=== PATIENT | male | born 1985 | race Caucasian/White ===

== ENCOUNTER 2016-08-05 11:48 | Emergency (ER) | payer SELFPAY ==
[2016-08-05 13:00] VITALS: BP 137/73
[2016-08-05] MEDS ORDERED: HYDROCODONE/ACETAMINOPHEN 5-325 MG 6 TAB/DSPK PO PRN ×2 (13:01→15:13)
--- NOTE | 2016-08-05 13:03 | ER Document Report ---
ED Medical Screen (RME) - General Chief Complaint: Shoulder Pain Stated Complaint: POSSIBLE LEFT SHOULDER INJURY Mode of Arrival: Ambulatory Information source: Patient Notes: Patient complains of left shoulder pain that worsened this morning around 0930 after he heard pop while hanging sheet rock. He states the pain is throbbing, constant and worse with movement. Denies numbness, tingling in fingers. He has not had any medication for this. He endorses chronic shoulder pain that is controlled with tylenol typically. TRAVEL OUTSIDE OF THE [place] IN LAST 30 DAYS: No - Related Data Allergies/Adverse Reactions: No Known Allergies Allergy (Verified 04/10/16 16:39) Past Medical History - Social History Frequency of alcohol use: Occasional Drug Abuse: None Musculoskeltal Medical History: Reports Hx Musculoskeletal Deformity, Reports Hx Musculoskeletal Trauma Traumatic Medical History: Reports: Hx Fractures - Left elbow and knee and right fingers Past Surgical History: Reports: Hx Orthopedic Surgery - Left elbow - Immunizations Immunizations up to date: Yes Hx Diphtheria, Pertussis, Tetanus Vaccination: Yes Review of Systems - Review of Systems Constitutional: See HPI Musculoskeletal: See HPI Physical Exam - Vital signs Vitals: Pulse Resp BP Pulse Ox 84 18 137/73 H 100 08/05/16 12:03 08/05/16 12:03 08/05/16 12:03 08/05/16 12:03 - Notes Notes: General: appears uncomfortable but no distress. Extremities: Left shoulder - tender to palpation along anterior joint with obvious deformity at AC joint. Passive ROM intact in abduction. At rest, shoulder held in adducted position with elbow flexed at 90 degrees. Course - Re-evaluation Re-evalutation: 08/05/16 13:02 Patient seen and examined. Ordered xray and PO medication. - Vital Signs Vital signs: Temp Pulse Resp BP Pulse Ox 84 18 137/73 H 100 08/05/16 12:03 08/05/16 12:03 08/05/16 12:03 08/05/16 12:03
[2016-08-05] MEDS ORDERED: HYDROCODONE/ACETAMINOPHEN 5-325 MG TABLET PO ONE (13:06)
--- NOTE | 2016-08-05 14:32 | ER Document Report ---
ED Extremity Problem, Upper - General Mode of Arrival: Ambulatory Information source: Patient TRAVEL OUTSIDE OF THE [place] IN LAST 30 DAYS: No - HPI Patient complains to provider of: Left, Shoulder Associated symptoms: Other - See above - General Chief Complaint: Shoulder Pain Stated Complaint: POSSIBLE LEFT SHOULDER INJURY Notes: Patient is a 31 year old male who presents to the emergency department complaining of left shoulder pain. Patient states that he was installing ceiling sheet rock when he heard a pop and had pain that has not subsided. Patient reports that he has chronic left shoulder pain from a few years ago and was seen at this facility on 04/22/16 for a similar flare up after falling off a ladder. Patient reports that he had an AC separation when he was younger of the left shoulder. Patient did have an MRI done after his 04/22 visit but has not been able to go to his doctor for a follow up due to monetary issues. (RAJIV CAMARENA) - Related Data Allergies/Adverse Reactions: No Known Allergies Allergy (Verified 04/10/16 16:39) Past Medical History - General Information source: Patient - Social History Smoking Status: Current Every Day Smoker Frequency of alcohol use: Occasional Drug Abuse: None Family History: Reviewed & Not Pertinent, Arthritis, Hyperlipidemia, Hypertension, Malignancy Patient has suicidal ideation: No Patient has homicidal ideation: No Musculoskeltal Medical History: Reports Hx Musculoskeletal Deformity, Reports Hx Musculoskeletal Trauma Traumatic Medical History: Reports: Hx Fractures - Left elbow and knee and right fingers Past Surgical History: Reports: Hx Orthopedic Surgery - Left elbow - Immunizations Immunizations up to date: Yes Hx Diphtheria, Pertussis, Tetanus Vaccination: Yes Review of Systems - Review of Systems Constitutional: No symptoms reported EENT: No symptoms reported Cardiovascular: No symptoms reported Respiratory: No symptoms reported Gastrointestinal: No symptoms reported Genitourinary: No symptoms reported Male Genitourinary: No symptoms reported Musculoskeletal: See HPI, Joint pain - Left shoulder Skin: No symptoms reported Hematologic/Lymphatic: No symptoms reported Neurological/Psychological: No symptoms reported -: Yes All other systems reviewed and negative Physical Exam - Vital signs Interpretation: Normal - General General appearance: Appears well, Alert - HEENT Head: Normocephalic, Atraumatic - Respiratory Respiratory status: No respiratory distress - Cardiovascular Rhythm: Regular Heart sounds: Normal auscultation Murmur: No - Extremities General lower extremity: Normal inspection Shoulder: Tender - left acromion end is tender to palpation - Neurological Neuro grossly intact: Yes Cognition: Normal Orientation: AAOx4 [place] Coma Scale Eye Opening: Spontaneous [place] Coma Scale Verbal: Oriented [place] Coma Scale Motor: Obeys Commands Rsa Coma Scale Total: 15 Speech: Normal - Psychological Associated symptoms: Normal affect, Normal mood - Skin Skin Temperature: Warm Skin Moisture: Dry Skin Color: Normal Discharge - Discharge Clinical Impression: Acromioclavicular (joint) (ligament) sprain Qualifiers: Encounter type: initial encounter Laterality: left Qualified Code(s): S43.52XA - Sprain of left acromioclavicular joint, initial encounter Condition: Stable Disposition: HOME, SELF-CARE Additional Instructions: AC Joint Sprain: The injury to your shoulder caused an acromioclavicular (AC) sprain. This involves the joint between the point of the shoulder-blade and the collarbone. This injury, while quite painful, will usually heal well without any permanent problems. The usual treatment is cold packs and a sling. (In rare cases, a shoulder separation may require surgery.) The shoulder will need to be rested until the pain and swelling decrease. With milder AC sprains, the shoulder can be used again within a few days, although motions such as throwing may be painful for months. The usual guideline is "if it hurts, don't do it." Your physician has assessed the severity of your shoulder separation. It is important that instructions be followed exactly concerning work, sports, and follow-up care. Your treatment plan may change based on the results of further check-ups. Your pain today seems to be coming from the acromioclavicular joint. You should use ice packs and wear your shoulder immobilizer today. Take 2 Aleve every 12 hours. Follow-up with a local orthopedic surgeon if not improving. Scribe Attestation: 08/05/16 15:14 I personally performed the services described in the documentation, reviewed and edited the documentation which was dictated to the scribe in my presence, and it accurately records my words and actions. (PIYUSH ACUNA) Scribe Documentation - Scribe Written by Zoran:: Zoran Timmons, 08/05/16, 14:47 acting as scribe for :: Eva
== END 2016-08-05 15:33 | disposition home or self-care (01) ==
LOC: ER 11:48
DX: S43.52XA Sprain of left acromioclavicular joint, initial encounter (principal); M25.512 Pain in left shoulder; F17.200 Nicotine dependence, unspecified, uncomplicated; X58.XXXA Exposure to other specified factors, initial encounter; Y93.H3 Activity, building and construction
CPT/HCPCS: 99283

== ENCOUNTER 2017-01-12 16:27 | Emergency (ER) | payer SELFPAY ==
[2017-01-12 16:38] VITALS: BP 134/82
--- NOTE | 2017-01-12 16:59 | ER Document Report ---
ED Respiratory Problem - General Chief Complaint: Chest Congestion Stated Complaint: COUGH/CHEST PAIN Time Seen by Provider: 01/12/17 16:48 Mode of Arrival: Ambulatory Information source: Patient Notes: 31-year-old male presents to ED for cough congestion pain with cough and over the last week. States is getting worse now. States she did not develop short of breath. States his kids came home with a viral illness and he cut it from them and then he has been working out in the rain ever since then was not taking care of himself. TRAVEL OUTSIDE OF THE [place] IN LAST 30 DAYS: No - HPI Patient complains to provider of: COPD, Short of breath Onset: Last week Duration: Worse/persistent Initiating Event: URI Quality of pain: Sharp Severity: Moderate Pain Level: 4 Context: Smoker Short of Breath: Mild Cough: Productive Sputum amount: Small Sputum color: Green Sputum consistency: Thick Associated symptoms: Cough, PND, Runny nose, Sinus pain/pressure, Short of breath. denies: Fever Similar symptoms previously: Yes Recently seen / treated by doctor: No - Related Data Allergies/Adverse Reactions: No Known Allergies Allergy (Verified 01/12/17 16:36) Past Medical History - General Information source: Patient - Social History Smoking Status: Current Every Day Smoker Cigarette use (# per day): Yes - Half a pack a day Smoking Education Provided: Yes - Less than 2 minutes Frequency of alcohol use: None Drug Abuse: None Occupation: Construction Lives with: Spouse/Significant other - Children Family History: Arthritis, DM, Hyperlipidemia, Hypertension, Malignancy. denies : CAD, COPD, CVA, Thyroid Disfunction Patient has suicidal ideation: No Patient has homicidal ideation: No - Past Medical History Cardiac Medical History: Reports: None Pulmonary Medical History: Reports: None EENT Medical History: Reports: None Neurological Medical History: Reports: None Endocrine Medical History: Reports: None Renal/ Medical History: Reports: None Malignancy Medical History: Reports None GI Medical History: Reports: None Musculoskeltal Medical History: Reports Hx Musculoskeletal Deformity, Reports Hx Musculoskeletal Trauma Skin Medical History: Reports None Psychiatric Medical History: Reports: None Traumatic Medical History: Reports: Hx Fractures - Left elbow and knee and right fingers Infectious Medical History: Reports: None Past Surgical History: Reports: Hx Orthopedic Surgery - Left elbow - Immunizations Immunizations up to date: Yes Hx Diphtheria, Pertussis, Tetanus Vaccination: Yes Review of Systems - Review of Systems Constitutional: Recent illness EENT: Nose congestion, Sinus discharge, Throat pain Cardiovascular: No symptoms reported Respiratory: Cough, Sputum Gastrointestinal: No symptoms reported Genitourinary: No symptoms reported Male Genitourinary: No symptoms reported Musculoskeletal: No symptoms reported Skin: No symptoms reported Hematologic/Lymphatic: No symptoms reported Neurological/Psychological: No symptoms reported Physical Exam - Vital signs Vitals: Temp Pulse Resp BP Pulse Ox 97.8 F 85 16 134/82 H 98 01/12/17 16:36 01/12/17 16:36 01/12/17 16:36 01/12/17 16:36 01/12/17 16:36 Interpretation: Normal - General General appearance: Appears well, Alert - HEENT Head: Normocephalic, Atraumatic Eyes: Normal Pupils: PERRL Ears: Normal External canal: Normal Tympanic membrane: Normal Sinus: Normal Nasal: Purulent discharge, Swelling Mouth/Lips: Normal Mucous membranes: Normal Pharynx: Post nasal drainage Neck: Normal - Respiratory Respiratory status: No respiratory distress Chest status: Tender, Pain with cough Breath sounds: Normal, Nonproductive cough. No: Productive cough, Rales, Rhonchi, Stridor, Wheezing Chest palpation: Normal - Cardiovascular Rhythm: Regular Heart sounds: Normal auscultation Murmur: No - Abdominal Inspection: Normal Distension: No distension Bowel sounds: Normal Tenderness: Nontender Organomegaly: No organomegaly - Back Back: Normal, Nontender - Extremities General upper extremity: Normal inspection, Nontender, Normal color, Normal ROM , Normal temperature General lower extremity: Normal inspection, Nontender, Normal color, Normal ROM , Normal temperature, Normal weight bearing. No: Sharyn's sign - Neurological Neuro grossly intact: Yes Cognition: Normal Orientation: AAOx4 [place] Coma Scale Eye Opening: Spontaneous [place] Coma Scale Verbal: Oriented [place] Coma Scale Motor: Obeys Commands [place] Coma Scale Total: 15 Speech: Normal Motor strength normal: LUE, RUE, LLE, RLE Sensory: Normal - Psychological Associated symptoms: Normal affect, Normal mood - Skin Skin Temperature: Warm Skin Moisture: Dry Skin Color: Normal Course - Re-evaluation Re-evalutation: 01/12/17 18:05 Discussed x-ray with patient. Patient is having discomfort when he coughs and tenderness to the palpation to the chest. He states it feels like he is tight and is he feels short of breath. Patient was treated with steroids and albuterol inhaler and instructed to follow-up with the primary doctor. - Vital Signs Vital signs: Temp Pulse Resp BP Pulse Ox 97.8 F 85 16 134/82 H 98 01/12/17 16:36 01/12/17 16:36 01/12/17 16:36 01/12/17 16:36 01/12/17 16:36 - Diagnostic Test Radiology reviewed: Image reviewed, Reports reviewed Discharge - Discharge Clinical Impression: URI (upper respiratory infection) Qualifiers: URI type: unspecified URI Qualified Code(s): J06.9 - Acute upper respiratory infection, unspecified Disposition: HOME, SELF-CARE Instructions: Family Physicians / Practices Additional Instructions: UPPER RESPIRATORY ILLNESS: You have a viral infection of the respiratory passages -- a "cold." This common infection causes nasal congestion, drainage, and often sore throat and cough. It is highly contagious. The disease usually lasts about 10 to 14 days. There is no "cure" for the viral infection -- it must run its course. If there is a complication, such as bacterial infection in the nose, sinuses, middle ear, or bronchial tubes, antibiotics may be required. The antibiotics won't affect the virus. Drink plenty of fluids. A humidifier may help. An expectorant medication or decongestant may make you more comfortable. Use acetaminophen or ibuprofen for fever or aches. See the doctor if fever persists over two days, if there is any significant worsening of your symptoms, or if you simply fail to improve as expected. BRONCHOSPASM: You have tightness in the bronchial tubes, called bronchospasm. This often occurs with bronchial infections. Allergies, inhaled chemicals, and polluted or cold air can also provoke bronchospasm. It's more likely in patients with asthma in the family. Emergency treatment of bronchospasm may include adrenaline shots or bronchodilator aerosol. You may feel lightheaded and have a rapid pulse for an hour or two. Rest and get plenty of fluids. At home, we'll treat you with a bronchodilator inhaler. Antibiotics and corticosteroids may be required for some patients. Until you recover, avoid chemical fumes, dusts, pollens, and exercising in very cold or dry air. If you smoke, stop now!! If you develop a fever, increased wheezing, chest pain, or severe shortness of breath, you should contact the doctor immediately. DECONGESTANT MEDICATION: A decongestant medicine has been prescribed. Often this medicine is combined in the same tablet with an antihistamine or expectorant. This type of medicine is helpful in treating a bad cold or sinus condition, as well as in treatment of the nasal congestion of hay fever. It is not of much benefit for lung infections. Decongestant medicines are related to stimulants. They can cause an increase in blood pressure and heart rate. Persons with heart disease and high blood pressure should not take decongestants without discussing this with the physician. If you develop palpitations, chest pain, headache, or tremors, stop the medicine and consult your physician. COUGH-SUPPRESSANT & EXPECTORANT MEDICATION: You are to use a cough medication as needed for relief of symptoms. This medicine is a combination of an expectorant (to make the mucous thinner and more easily "coughed up") and a cough suppressant (to reduce the frequency of coughing). The cough-suppressant medicine is related to narcotics. You may experience mild nausea and sleepiness. Some patients who are very sensitive to narcotics may have stomach pain from this medicine. Taking the medicine with food reduces these side effects. Do not drive or work with machinery until you know how this medicine affects you. The expectorant should have no side effects. Iodine-containing expectorants (such as organidin) should not be taken by persons with active thyroid disease unless approved by your doctor. Call the doctor if you develop shortness of breath, hives, rash, itching, lightheadedness, or severe nausea and vomiting. INHALED BRONCHODILATORS: You have received a treatment of and/or prescription for an inhaled bronchodilator -- a medication which stimulates the airways in the lung to dilate. This improves the flow of air in asthma, bronchitis, and emphysema. These medicines have some similarity to adrenaline, and can cause similar side effects: shakiness, racing heart, and a sense of nervousness. These side effects decrease with time. Contact your doctor if these side effects are severe. Do not over-use the medicine. Too-frequent use of the inhaler may make it ineffective. Call your doctor if the inhaler is not controlling your symptoms at the prescribed doses. STEROID MEDICATION: You have been given an injection of or oral medicine of the cortisone/ steroid class. This medication is used to control inflammation or allergy. Doc t is usually only given for a short period of time, until the acute process subsides. There are usually no side effects from short-term use of cortisone-like medications. Some persons feel an increased sense of well-being and are not sleepy at bedtime. Long-term use of cortisone medications is best avoided, unless required for a severe condition. If your condition does not remit, or relapses after the course of corticosteroid medication, you should consult your physician. USE OF ACETAMINOPHEN (Tylenol): Acetaminophen may be taken for pain relief or fever control. It's much safer than aspirin, offering a wider range of "safe" dosages. It is safe during . Some brand names are Tylenol, Panadol, Datril, Anacin 3, Tempra, and Liquiprin. Acetaminophen can be repeated every four hours. The following are maximum recommended dosages: >89 pounds or adults 650 mg to 900 mg Acetaminophen can be repeated every four hours. Maximum dose not to exceed 4000 mg a day. SMOKING: If you smoke, you should stop smoking. The tar and chemicals in cigarette smoke are harmful. Smoking has been shown to cause: emphysema chronic bronchitis lung cancer mouth and throat cancer stomach and pancreas cancer premature aging defects In addition, smoking increases ear and lung infections in children of smokers. FOLLOW-UP CARE: If you have been referred to a physician for follow-up care, call the physician s office for an appointment as you were instructed or within the next two days. If you experience worsening or a significant change in your symptoms, notify the physician immediately or return to the Emergency Department at any time for re-evaluation. Prescriptions: Prednisone [Deltasone 10 mg Tablet] 10 mg PO ASDIR PRN #21 tablet PRN Reason: Forms: Elevated Blood Pressure, Smoking Cessation Education
--- NOTE | 2017-01-12 17:22 | RADIOLOGY REPORT (SQ) ---
EXAM DESCRIPTION: CHEST PA/LAT COMPLETED DATE/TIME: 01/12/2017 5:10 pm REASON FOR STUDY: cough congestion COMPARISON: 2012. TECHNIQUE: Frontal and lateral radiographic views of the chest acquired. NUMBER OF VIEWS: Two view. LIMITATIONS: None. FINDINGS: LUNGS AND PLEURA: No opacities, masses or pneumothorax. No pleural effusion. MEDIASTINUM AND HILAR STRUCTURES: No masses or contour abnormalities. HEART AND VASCULAR STRUCTURES: Heart normal size. No evidence for failure. BONES: No acute findings. HARDWARE: None in the chest. OTHER: No other significant finding. IMPRESSION: NO SIGNIFICANT RADIOGRAPHIC FINDING IN THE CHEST. TECHNICAL DOCUMENTATION: JOB ID: [id number] [employer]- All Rights Reserved
[2017-01-12] MEDS ORDERED: PREDNISONE 20 MG TABLET PO ONE (17:57)
[2017-01-13] MEDS ORDERED: ALBUTEROL SULFATE HFA (90 MCG/PUFF) 8 GM MDI (1 MDI/ER DISP) IH ONE (17:57)
== END 2017-01-12 18:14 | disposition home or self-care (01) ==
LOC: ER 16:27
DX: J06.9 Acute upper respiratory infection, unspecified (principal); R09.89 Other specified symptoms and signs involving the circulatory and respiratory systems; R05 Cough; R07.9 Chest pain, unspecified; F17.210 Nicotine dependence, cigarettes, uncomplicated
CPT/HCPCS: 99283; 71020; J7512

== ENCOUNTER 2018-02-07 15:49 | Emergency (ER) | payer SELFPAY ==
[2018-02-07 16:08] VITALS: BP 150/77
--- NOTE | 2018-02-07 16:09 | ER Document Report ---
HPI - HPI Patient complains to provider of: Lateral right knee pain Onset: Other - Pain Level: 3 Context: 33-year-old thought he had an insect bite on his lateral left knee on and is gotten a lot redder and more painful since. No fever or chills did itch it when he first got up. Associated Symptoms: None Exacerbated by: Movement Relieved by: Denies Similar symptoms previously: No Recently seen / treated by doctor: No - ROS ROS below otherwise negative: Yes Systems Reviewed and Negative: Yes All other systems reviewed and negative - REPRODUCTIVE Reproductive: DENIES: : Past Medical History - General Information source: Patient - Social History Smoking Status: Unknown if Ever Smoked Frequency of alcohol use: None Drug Abuse: None Lives with: Family Family History: Arthritis, DM, Hyperlipidemia, Hypertension, Malignancy Renal/ Medical History: Denies: Hx Peritoneal Dialysis Musculoskeltal Medical History: Reports Hx Musculoskeletal Deformity, Reports Hx Musculoskeletal Trauma Traumatic Medical History: Reports: Hx Fractures - Left elbow and knee and right fingers Past Surgical History: Reports: Hx Orthopedic Surgery - Left elbow - Immunizations Immunizations up to date: Yes Hx Diphtheria, Pertussis, Tetanus Vaccination: Yes Vertical Provider Document - CONSTITUTIONAL Agree With Documented VS: Yes Exam Limitations: No Limitations General Appearance: No Apparent Distress - INFECTION CONTROL TRAVEL OUTSIDE OF THE [place] IN LAST 30 DAYS: No - MUSCULOSKELETAL/EXTREMETIES Musculoskeletal/Extremeties: MAEW, FROM, Tender - Warm red local cellulitis to a crusted lesion lateral left knee, there is no palpable fluid collection that could be incised. - NEURO Level of Consciousness: Awake Motor/Sensory: No Motor Deficit, No Sensory Deficit Course - Re-evaluation Re-evalutation: 02/07/18 X-rays negative per radiologist - Vital Signs Vital signs: Temp Pulse Resp BP Pulse Ox 98.1 F 78 18 150/77 H 98 02/07/18 16:07 02/07/18 16:07 02/07/18 16:07 02/07/18 16:07 02/07/18 16:07 Discharge - Discharge Clinical Impression: Local cellulitis Insect bite Qualifiers: Encounter type: initial encounter Qualified Code(s): W57.XXXA - Bitten or stung by nonvenomous insect and other nonvenomous arthropods, initial encounter Condition: Good Disposition: HOME, SELF-CARE Instructions: Acetaminophen, Cephalexin ([facility]), Ibuprofen (General) ([facility]), Trimethoprim-Sulfa ([facility]), Warm Packs ([facility]) Additional Instructions: Warm compress and elevation Antibiotics Return to the emergency room if symptoms worsen Prescriptions: Cephalexin Monohydrate [Keflex 500 mg Capsule] 500 mg PO QID #28 capsule Sulfamethoxazole/Trimethoprim [Sulfamethoxazole-Tmp Ds Tablet] 1 each PO BID # 14 tablet
--- NOTE | 2018-02-07 16:41 | RADIOLOGY REPORT (SQ) ---
EXAM DESCRIPTION: KNEE LEFT 4 VIEW COMPLETED DATE/TIME: 02/07/2018 4:25 pm REASON FOR STUDY: LEFT KNEE PAIN COMPARISON: None. NUMBER OF VIEWS: Four views. TECHNIQUE: AP, lateral, and both oblique radiographic images acquired of the left knee. LIMITATIONS: None. FINDINGS: MINERALIZATION: Normal. BONES: No acute fracture or dislocation. No worrisome bone lesions. No significant osteophytes. JOINT: No effusion. No chondrocalcinosis. OTHER: No other significant finding. IMPRESSION: NEGATIVE STUDY OF THE LEFT KNEE. NO EXPLANATION FOR PAIN. TECHNICAL DOCUMENTATION: JOB ID: [id number] [employer]- All Rights Reserved Reading location - IP/workstation name: [email or web address]
== END 2018-02-07 16:40 | disposition home or self-care (01) ==
LOC: ER 15:49
DX: S80.261A Insect bite (nonvenomous), right knee, initial encounter (principal); L03.115 Cellulitis of right lower limb; W57.XXXA Bitten or stung by nonvenomous insect and other nonvenomous arthropods, initial encounter
CPT/HCPCS: 99283

== ENCOUNTER 2018-02-09 16:05 | Emergency (ER) | payer SELFPAY ==
[2018-02-09 16:17] VITALS: BP 147/73
--- NOTE | 2018-02-09 16:34 | ER Document Report ---
HPI - HPI Patient complains to provider of: Worsening bite to the left lateral knee Onset: Other - Last week Onset/Duration: Gradual Pain Level: 5 Context: 33-year-old male complaining of worsening pain to his knee. He has been taking cephalexin and Septra after being seen on Friday for erythema to a possible insect bite. He states the pain is gotten a lot worse and now it looks pustular. Associated Symptoms: None Exacerbated by: Walking Relieved by: Denies Similar symptoms previously: No Recently seen / treated by doctor: Yes - ROS ROS below otherwise negative: Yes Systems Reviewed and Negative: Yes All other systems reviewed and negative - REPRODUCTIVE Reproductive: DENIES: : Past Medical History - General Information source: Patient - Social History Smoking Status: Unknown if Ever Smoked Frequency of alcohol use: None Drug Abuse: None Lives with: Spouse/Significant other Family History: Arthritis, DM, Hyperlipidemia, Hypertension, Malignancy - Medical History Medical History: Negative Renal/ Medical History: Denies: Hx Peritoneal Dialysis Musculoskeltal Medical History: Reports Hx Musculoskeletal Deformity, Reports Hx Musculoskeletal Trauma Traumatic Medical History: Reports: Hx Fractures - Left elbow and knee and right fingers Past Surgical History: Reports: Hx Orthopedic Surgery - Left elbow - Immunizations Immunizations up to date: Yes Hx Diphtheria, Pertussis, Tetanus Vaccination: Yes Vertical Provider Document - CONSTITUTIONAL Agree With Documented VS: Yes Exam Limitations: No Limitations - INFECTION CONTROL TRAVEL OUTSIDE OF THE [place] IN LAST 30 DAYS: No - MUSCULOSKELETAL/EXTREMETIES Musculoskeletal/Extremeties: CECIL, FROM, Tender - 1cm Pustular lesion lateral left knee with surrounding 1 cm erythema and induration, light pink erythema surrounding it measuring - NEURO Level of Consciousness: Alert Course - Re-evaluation Re-evalutation: 02/09/18 16:52 Patient still refuses to take a day off from work even though I encouraged him to do that on Friday and again today so that he can elevate it and put heat on it. - Vital Signs Vital signs: Temp Pulse Resp BP Pulse Ox 98.5 F 92 16 147/73 H 98 02/09/18 16:16 02/09/18 16:16 02/09/18 16:16 02/09/18 16:16 02/09/18 16:16 Procedures - Incision and Drainage Left Knee Time completed: 18:30 Type: Simple Anesthetic type: 1% Lidocaine mL's of anesthetic: 4 Blade size: 11 I&D procedure: Betadine prep applied, Sterile dressing applied - pcked Incision Method: Incision made by scalpel Amount/type of drainage: no pus, excised devitalized tissue and packed with corner of the 4 x 4 gauz Discharge - Discharge Clinical Impression: Excision of devitalized tissue, Probable spider bite left lateral knee, Cellulitis Condition: Good Disposition: HOME, SELF-CARE Instructions: Use of Crutches ([facility]), Clindamycin ([facility]), Warm Packs ([facility]), Elevation & Warmth ([facility]) Additional Instructions: Stop the cephalexin Take the clindamycin and the Septra Elevate and heat No work tomorrow Crutches Recheck the wound in 48 hours, sooner if worse Prescriptions: Hydrocodone Bit/Acetaminophen [Hydrocodon-Acetaminophen 5-325] 1 each PO Q4HP PRN #10 tablet PRN Reason: Clindamycin HCl [Cleocin 150 mg Capsule] 300 mg PO QID #56 capsule Forms: Return to Work
[2018-02-09] MEDS ORDERED: HYDROCODONE/ACETAMINOPHEN 5-325 MG TABLET PO ONE (16:38)
[2018-02-09] MEDS ORDERED: CEFAZOLIN 2 GM/D5W RTU 2 GM/50 ML RTUPB IV ONE (16:53)
[2018-02-09] MEDS ORDERED: CLINDAMYCIN 600 MG/D5W RTU 600 MG/50 ML RTUPB IV ONE (16:54)
[2018-02-09] MEDS ORDERED: LIDOCAINE 4%/TETRACAINE 0.5%/EPI 0.18% 5 ML TOPICAL SOLN TOP ONE (17:27)
== END 2018-02-09 18:46 | disposition home or self-care (01) ==
LOC: ER 16:05
PROC: 0H9LXZZ Drainage of Left Lower Leg Skin, External Approach (ICD-10-PCS; principal; 2018-02-09)
DX: L03.116 Cellulitis of left lower limb (principal); L98.8 Other specified disorders of the skin and subcutaneous tissue; W57.XXXA Bitten or stung by nonvenomous insect and other nonvenomous arthropods, initial encounter; S80.262A Insect bite (nonvenomous), left knee, initial encounter
CPT/HCPCS: 99283; 96365; 10060; J3490

== ENCOUNTER 2018-03-14 19:17 | Emergency (ER) | payer SELFPAY ==
[2018-03-14] MEDS ORDERED: LIDOCAINE 1%/EPINEPHRINE INJ 20 ML VIAL INJ ONE (20:35)
[2018-03-14] MEDS ORDERED: HYDROCODONE/ACETAMINOPHEN 5-325 MG TABLET PO ONE (20:35)
--- NOTE | 2018-03-14 21:30 | ER Document Report ---
ED General - General Chief Complaint: Abscess Stated Complaint: ABSCESS Time Seen by Provider: 03/14/18 20:32 Mode of Arrival: Ambulatory Information source: Patient TRAVEL OUTSIDE OF THE [place] IN LAST 30 DAYS: No - HPI Notes: Patient presents with report of a 2 day history of a scalp abscess that he noted. The patient has a history of previous abscess 1 month ago on the left knee which is cleared up. He has no known history of MRSA and a culture was not taken at that time. He denies any fever or chills or history of diabetes. No significant headache. No trauma to the area that he is aware of. No nausea or vomiting. - Related Data Allergies/Adverse Reactions: No Known Allergies Allergy (Verified 03/14/18 19:18) Past Medical History - General Information source: Patient - Social History Smoking Status: Current Every Day Smoker Chew tobacco use (# tins/day): Yes Frequency of alcohol use: Rare Drug Abuse: None Lives with: Family Family History: Arthritis, DM, Hyperlipidemia, Hypertension, Malignancy Patient has suicidal ideation: No Patient has homicidal ideation: No Renal/ Medical History: Denies: Hx Peritoneal Dialysis Musculoskeletal Medical History: Reports Hx Musculoskeletal Deformity, Reports Hx Musculoskeletal Trauma Traumatic Medical History: Reports: Hx Fractures - Left elbow and knee and right fingers Past Surgical History: Reports: Hx Orthopedic Surgery - Left elbow - Immunizations Immunizations up to date: Yes Hx Diphtheria, Pertussis, Tetanus Vaccination: Yes Review of Systems - Review of Systems -: Yes All other systems reviewed and negative Physical Exam - Vital signs Vitals: Temp Pulse Resp BP Pulse Ox 97.9 F 72 18 142/81 H 100 03/14/18 19:36 03/14/18 19:36 03/14/18 19:36 03/14/18 19:36 03/14/18 19:36 - Notes Notes: Examination HEENT atraumatic normocephalic. Patient has a small 1 cm abscess on the occipital vertex. There is no obvious ingrown hair. The patient does have mild occipital adenopathy but no other abscesses. Conjunctiva clear nose clear neck supple no meningismus. Course - Re-evaluation Re-evalutation: 03/15/18 02:37 Following discussion of risks, alternatives, and benefits, the patient agreed to incision and drainage of the abscess. The wound area was cleaned and Betadine prepped and then locally infiltrated with lidocaine 1% without epinephrine 0.4 mL's, then the wound was incised with a #11 scalpel and minimal amount of purulent material was obtained which was sent for culture. The wound was irrigated and there is no foreign body noted. There was no need for packing into the wound. Patient tolerated this well. Blood loss negligible. No evidence for systemic infection or other acute process. Based upon the previous history of abscesses, patient will be placed upon antibiotics. - Vital Signs Vital signs: Temp Pulse Resp BP Pulse Ox 97.3 F 72 16 141/80 H 97 03/14/18 21:48 03/14/18 21:48 03/14/18 21:48 03/14/18 21:48 03/14/18 21:48 Discharge - Discharge Clinical Impression: Scalp abscess Condition: Stable Disposition: HOME, SELF-CARE Instructions: Abscess ([facility]), Post Incision and Drainage Additional Instructions: Apply antibiotic ointment to the wound. Return to the emergency department in case of fever, severe pain or swelling. Followup with your regular doctor as needed. Prescriptions: Ibuprofen 800 mg PO Q8HP PRN #30 tablet PRN Reason: Clindamycin HCl 300 mg PO TID #24 capsule
[2018-03-14] MEDS ORDERED: CLINDAMYCIN HCL 150 MG CAPSULE PO ONE (21:31)
[2018-03-14] MEDS ORDERED: HYDROCODONE/ACETAMINOPHEN 5-325 MG (6 TAB/ER DISP) PO PRN (21:32)
[2018-03-14 21:49] VITALS: BP 141/80
== END 2018-03-14 21:53 | disposition home or self-care (01) ==
LOC: ER 19:17
DX: L02.811 Cutaneous abscess of head [any part, except face] (principal); F17.200 Nicotine dependence, unspecified, uncomplicated
CPT/HCPCS: 99283; 87070; 87205; 87075; 87077; 87186; 10060; J3490

== ENCOUNTER 2018-09-13 20:49 | Emergency (ER) | payer SELFPAY ==
[2018-09-13] MEDS ORDERED: METAXALONE 800 MG TABLET PO ONE (23:32)
--- NOTE | 2018-09-13 23:36 | ER Document Report ---
ED General - General Chief Complaint: Back Pain Stated Complaint: BACK PAIN Time Seen by Provider: 09/13/18 23:17 Notes: Patient is a 33-year-old male presents with complaint of low back pain. Patient says he had this once before about a year ago. He works construction. He says one morning after working he woke up and had stiffness and pain across his back. Is continued for the last 24 hours. No pain rating down his legs. Loss of bowel control. No urinary tension. No weakness or numbness into his legs. Pain is mostly on the right side of the lower back. No trauma. No other complaints at this time. TRAVEL OUTSIDE OF THE [place] IN LAST 30 DAYS: No - Related Data Allergies/Adverse Reactions: No Known Allergies Allergy (Verified 03/14/18 19:18) Past Medical History - Social History Smoking Status: Unknown if Ever Smoked Frequency of alcohol use: None Drug Abuse: None Family History: Arthritis, DM, Hyperlipidemia, Hypertension, Malignancy Renal/ Medical History: Denies: Hx Peritoneal Dialysis Musculoskeletal Medical History: Reports Hx Musculoskeletal Deformity, Reports Hx Musculoskeletal Trauma Traumatic Medical History: Reports: Hx Fractures - Left elbow and knee and right fingers Past Surgical History: Reports: Hx Orthopedic Surgery - Left elbow - Immunizations Immunizations up to date: Yes Hx Diphtheria, Pertussis, Tetanus Vaccination: Yes Review of Systems - Review of Systems Notes: My Normal Review Basic REVIEW OF SYSTEMS: CONSTITUTIONAL : Denies fever, chills, or sweats. Denies recent illness. GASTROINTESTINAL: Denies abdominal pain. Denies nausea, vomiting, or diarrhea. MUSCULOSKELETAL: Back pain SKIN: Denies rash or skin lesions. NEUROLOGICAL: Denies sensory or motor loss. ALL OTHER SYSTEMS REVIEWED AND NEGATIVE. Physical Exam - Vital signs Vitals: Temp Pulse Resp BP Pulse Ox 98.5 F 75 16 139/80 H 98 09/13/18 21:39 09/13/18 21:39 09/13/18 21:39 09/13/18 21:39 09/13/18 21:39 - Notes Notes: General Appearance: Well nourished, alert, cooperative, no acute distress, mild obvious discomfort. Vitals: reviewed, See vital signs table. Head: no swelling or tenderness to the head Eyes: PERRL, EOMI, Conjuctiva clear Back: Pain to palpation that is mainly over the right lumbar paraspinal musculature. Some mild pain over the left lumbar paraspinal musculature. No pain into the thoracic spine. No pain into the gluteal region. Patient is able to stand and walk without difficulty. Good strength bilateral lower extremities. Extremities: strength 5/5 in all extremities, good pulses in all extremities, no swelling or tenderness in the extremities, no edema. Skin: warm, dry, appropriate color, no rash Neuro: speech clear, oriented x 3, normal affect, responds appropriately to questions. Course - Re-evaluation Re-evalutation: 09/13/18 23:40 Patient has what appears to be lumbar strain. Is well-appearing. Dr. almanzar about taken Tylenol Motrin for pain. Talked to him about structured stretching exercises and core strengthening excise such as yoga. I talked about potentially following up with physical therapy if his back continues to bother him. 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 I encouraged him to at least wear back support brace then to help prevent further injury to his back. I encouraged him return to ER if he has leg weakness or numbness, loss of bowel control, urinary tension, or if he feels unwell. Dictation of this chart was performed using voice recognition software; therefore, there may be some unintended grammatical errors. - Vital Signs Vital signs: Temp Pulse Resp BP Pulse Ox 98.5 F 75 16 139/80 H 98 09/13/18 21:39 09/13/18 21:39 09/13/18 21:39 09/13/18 21:39 09/13/18 21:39 Discharge - Discharge Clinical Impression: Back pain Qualifiers: Back pain location: low back pain Chronicity: acute Back pain laterality: right Sciatica presence: without sciatica Qualified Code(s): M54.5 - Low back pain Condition: Good Disposition: HOME, SELF-CARE Additional Instructions: LOW BACK PAIN: Three out of every four people will have an episode of disabling back pain during their lifetime. Most commonly the pain is due to straining of the muscles and ligaments in the low back. Usual treatment includes: (1) Rest on a firm surface. Avoid lying on your stomach. (2) Ice pack the painful area. After a few days, gentle heat may be used int ermittently to relax the area, or ice packs can be continued. (3) Medication may be needed -- muscle relaxers and antiinflammatory medicines are commonly used. (4) As the back improves, exercises are prescribed to strengthen the back and abdominal muscles. Your doctor will advise you on the proper care for your back at each stage in your recovery. You may be better in a few days -- or healing may take several weeks. If new symptoms of a "herniated disc" (radiation of pain, numbness, or tingling down the back of the leg or weakness in the leg) occur, you should be re-examined. Further testing may be necessary. PAIN MEDICATION INJECTION: You have received an injection of a pain medication. You should experience significant pain relief within 45 minutes. If this injection was a narcotic -- it will impair your judgement, slow your reaction time and make you sleepy (as well as relieve your pain). Narcotics also can cause nausea. You should not drive, work with machinery, or perform any task requiring mental alertness until all effects of the medication are gone -- six to eight hours. Do not take any alcohol, or sedatives, and do not take any other medicat ion without checking with your physician. MUSCLE RELAXERS: Muscle relaxing medications are usually prescribed for acute muscle spasm or injury to the neck and back. They are often combined with antiinflammatory pain medication for increased relief. You may stop the muscle relaxer when the pain and stiffness have improved. Start the medication again if spasms recur. Muscle relaxers may cause drowsiness, especially with the first dose. Do not operate machinery or drive while under the effects of the medication. Most muscle relaxers last up to 24 hours. Do not combine the medication with alcohol. ICE PACKS: Apply ice packs frequently against the painful area. Many different schedules are recommended, such as "20 minutes on, 20 minutes off" or "one hour ice, two hours rest." If you need to work, you may need to go longer between ice treatments. You should plan to have the area ice packed AT LEAST one fourth of the time. The ice should be applied over the wrap, tape, or splint, or over a layer of cloth -- not directly against the skin. Some ice bags have a built-in cloth and can be put directly on the skin. WARM PACKS: After approximately two days, apply gentle heat (such as a heating pad or hot water bottle) for about 20 to 30 minutes about every two hours -- at least four times daily. Warmth and elevation will help you make a more rapid recovery, and will ease the pain considerably. Do not use HOT heat, and never apply heat for longer than 30 minutes. The continuous heat can invisibly damage skin and muscles -- even when no burn is seen on the surface. Damaged muscles can make you MORE sore. FOLLOW-UP CARE: If you have been referred to a physician for follow-up care, call the physicians office for an appointment as you were instructed or within the next two days. If you experience worsening or a significant change in your symptoms, notify the physician immediately or return to the Emergency Department at any t emily for re-evaluation. Please do stretching exercises every morning. Things such as yoga are very helpful for to help stretch her back but also strengthen the muscles in her core which will help prevent future back injuries. Please make sure he still move around and stay active but try to avoid heavy lifting. Please take ibuprofen 600 mg every 8 hours as well as Tylenol 500 mg every 4 hours to help reduce inflammation in her back. I prescribed Skelaxin. This is a muscle relaxer that is typically not sedating. Please try before going to work as some people still are slightly sedated from this but it is rare. Do not take at work if it does make you sedated. Consider physical therapy if your back continues to bother you. Follow up with a primary care doctor for reevaluation and potential referral to physical therapy. Prescriptions: Metaxalone [Skelaxin 800 mg Tablet] 800 mg PO ASDIR PRN #20 tablet PRN Reason:
[2018-09-14] MEDS ORDERED: KETOROLAC TROMETHAMINE INJ/PF 30 MG/1 ML SDV IM ONE (00:23)
[2018-09-14 00:37] VITALS: BP 147/81
== END 2018-09-14 00:40 | disposition home or self-care (01) ==
LOC: ER 20:49
DX: M54.5 Low back pain (principal)
CPT/HCPCS: 99283; 96372; J1885

== ENCOUNTER 2018-09-16 18:27 | Emergency (ER) | payer SELFPAY ==
[2018-09-16] MEDS ORDERED: LIDOCAINE 5% (700 MG) TRANSDERMAL ADH..PATCH TP ONE (19:05)
[2018-09-16] MEDS ORDERED: KETOROLAC TROMETHAMINE 60 MG/2 ML SDV IM ONE (19:05)
[2018-09-16] MEDS ORDERED: DEXAMETHASONE 4 MG TABLET PO ONE (19:05)
--- NOTE | 2018-09-16 19:11 | ER Document Report ---
ED Neck/Back Problem - General Chief Complaint: Back Pain Stated Complaint: BACK PAIN Time Seen by Provider: 09/16/18 18:54 Mode of Arrival: Ambulatory Information source: Patient Notes: 33-year-old male presents to ED for continued back pain since his visit 3 days ago. He states the pain is now radiating across his left buttocks and down his left hip to his left leg. He states he is taken a muscle relaxers with no relief. He states she has not had any ibuprofen since this morning. Patient is alert oriented respirations regular and unlabored speaking in full sentences. He denies any loss of control of bowel bladder, saddle anesthesia, loss of control of lower extremities, or loss of sensation to the lower legs. TRAVEL OUTSIDE OF THE [place] IN LAST 30 DAYS: No - HPI Patient complains to provider of: Pain, Lower back Onset: Gradual Timing: Worse Quality of pain: Burning, Sharp Severity: Severe Pain Level: 5 Recent injury: No Associated symptoms: Like prior neck/back pain, Numbness/tingling, Radiation to leg, Lower back pain. denies: Constipation, Fever, Incontinence, Motor loss, Sensory loss, Sweaty, Unable to urinate, Upper back pain Exacerbated by: Movement of trunk, Sitting position Relieved by: Nothing Similar symptoms previously: Yes Recently seen / treated by doctor: Yes - Related Data Allergies/Adverse Reactions: No Known Allergies Allergy (Verified 09/16/18 18:28) Past Medical History - General Information source: Patient - Social History Smoking Status: Current Every Day Smoker Cigarette use (# per day): Yes - Pack per day Chew tobacco use (# tins/day): No Smoking Education Provided: Yes - 4 minutes Frequency of alcohol use: None Drug Abuse: Marijuana Occupation: Remodeling Lives with: Family Family History: Arthritis, DM, Hyperlipidemia, Hypertension, Malignancy Patient has suicidal ideation: No Patient has homicidal ideation: No - Past Medical History Cardiac Medical History: Reports: None Pulmonary Medical History: Reports: None EENT Medical History: Reports: None Neurological Medical History: Reports: None Endocrine Medical History: Reports: None Renal/ Medical History: Reports: None Malignancy Medical History: Reports None GI Medical History: Reports: None Musculoskeletal Medical History: Reports Hx Musculoskeletal Deformity, Reports Hx Musculoskeletal Trauma Skin Medical History: Reports None Psychiatric Medical History: Reports: None Traumatic Medical History: Reports: Hx Fractures - Left elbow and knee and right fingers Infectious Medical History: Reports: None Past Surgical History: Reports: Hx Orthopedic Surgery - Left elbow - Immunizations Immunizations up to date: Yes Hx Diphtheria, Pertussis, Tetanus Vaccination: Yes Review of Systems - Review of Systems Constitutional: No symptoms reported EENT: No symptoms reported Cardiovascular: No symptoms reported Respiratory: No symptoms reported Gastrointestinal: No symptoms reported Genitourinary: No symptoms reported Male Genitourinary: No symptoms reported Musculoskeletal: Back pain, Muscle pain, Muscle stiffness Skin: No symptoms reported Hematologic/Lymphatic: No symptoms reported Neurological/Psychological: No symptoms reported -: Yes All other systems reviewed and negative Physical Exam - Vital signs Vitals: Temp Pulse Resp BP Pulse Ox 98.3 F 84 14 150/80 H 99 09/16/18 18:48 09/16/18 18:48 09/16/18 18:48 09/16/18 18:48 09/16/18 18:48 Interpretation: Normal - General General appearance: Appears well, Alert - HEENT Head: Normocephalic, Atraumatic Eyes: Normal Pupils: PERRL - Respiratory Respiratory status: No respiratory distress Chest status: Nontender Breath sounds: Normal Chest palpation: Normal - Cardiovascular Rhythm: Regular Heart sounds: Normal auscultation Murmur: No - Abdominal Inspection: Normal Distension: No distension Bowel sounds: Normal Tenderness: Nontender. No: Tender Organomegaly: No organomegaly. No: Hepatomegaly, Splenomegaly, Mass - Back Back: Normal, Tender, Vertebra tenderness. No: Deformity/step-off, CVA tenderness, Scars, Scoliosis, Wounds Notes: Patient denies any signs or symptoms of cauda equina, he denies any saddle anesthesia, loss control of bowel or bladder, loss of sensation to the lower extremities, or loss of control of lower extremities. Patient is able to walk with a even steady gait. - Extremities General upper extremity: Normal inspection, Nontender, Normal color, Normal ROM, Normal temperature General lower extremity: Normal inspection, Nontender, Normal color, Normal ROM, Normal temperature, Normal weight bearing. 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 Sensory: Normal Biceps - Reflex grade: 2 = Normal Triceps - Reflex grade: 2 = Normal Brachioradialis - Reflex grade: 2 = Normal Knee - Reflex grade: 2 = Normal Ankle - Reflex grade: 2 = Normal - Psychological Associated symptoms: Normal affect, Normal mood - Skin Skin Temperature: Warm Skin Moisture: Dry Skin Color: Normal Course - Re-evaluation Re-evalutation: 09/16/18 20:21 After performing a Medical Screening Examination, I estimate there is LOW risk for EXPANDING OR RUPTURED ABDOMINAL AORTIC ANEURYSM, CAUDA EQUINA SYNDROME, EPIDURAL MASS LESION, or HERNIATED DISK CAUSING SEVERE SPINAL STENOSIS, thus I consider the discharge disposition reasonable. I have reevaluated this patient multiple times and no significant life threatening changes are noted. The patient and I have discussed the diagnosis and risks, and we agree with discharging home and close follow-up. We also discussed returning to the Emergency Department immediately if new or worsening symptoms occur with the un derstanding that symptoms and presentations can change. We have discussed the symptoms which are most concerning (e.g., saddle anesthesia, urinary or bowel incontinence or retention, changing or worsening pain) that necessitate immediate return. - Vital Signs Vital signs: Temp Pulse Resp BP Pulse Ox 98.1 F 69 16 135/82 H 99 09/16/18 20:24 09/16/18 20:24 09/16/18 20:24 09/16/18 20:24 09/16/18 20:24 - Diagnostic Test Radiology reviewed: Image reviewed, Reports reviewed Discharge - Discharge Clinical Impression: Back pain Qualifiers: Back pain location: low back pain Chronicity: unspecified Back pain laterality: bilateral Sciatica presence: with sciatica Sciatica laterality: sciatica of left side Qualified Code(s): M54.42 - Lumbago with sciatica, left side Condition: Stable Disposition: HOME, SELF-CARE Instructions: Family Physicians / Practices Additional Instructions: LOW BACK PAIN: Three out of every four people will have an episode of disabling back pain during their lifetime. Most commonly the pain is due to straining of the muscles and ligaments in the low back. Usual treatment includes: (1) Rest on a firm surface. Avoid lying on your stomach. (2) Ice pack the painful area. After a few days, gentle heat may be used intermittently to relax the area, or ice packs can be continued. (3) Medication may be needed -- muscle relaxers and antiinflammatory medicines are commonly used. (4) As the back improves, exercises are prescribed to strengthen the back and abdominal muscles. Your doctor will advise you on the proper care for your back at each stage in your recovery. You may be better in a few days -- or healing may take several weeks. If new symptoms of a "herniated disc" (radiation of pain, numbness, or tingling down the back of the leg or weakness in the leg) occur, you should be re-examined. Further testing may be necessary. Sciatica Your symptoms suggest "sciatica." The pain of sciatica typically radiates down the leg. Numbness in the foot or calf may also occur. Sciatica is caused by irritation of the sciatic nerve or its branches. The irritation can be due to a herniated disk in the spine, swelling and inflammation in the muscles surrounding the sciatic nerve, or direct injury of the nerve itself. Most cases of sciatica will resolve with medical treatment. Bed rest is usu ally recommended initially. Surgery is only necessary when the condition will not improve with rest and antiinflammatory medication. Muscle relaxers are often given if muscle soreness is present. A CAT scan of the back may be performed if a herniated disk is suspected. Re-examination is necessary if you develop increasing numbness, localized weakness in the foot or ankle, or if the pain does not respond to rest. ICE PACKS: Apply ice packs frequently against the painful area. Many different schedules are recommended, such as "20 minutes on, 20 minutes off" or "one hour ice, two hours rest." If you need to work, you may need to go longer between ice treatments. You should plan to have the area ice packed AT LEAST one fourth of the time. The ice should be applied over the wrap, tape, or splint, or over a layer of cloth -- not directly against the skin. Some ice bags have a built-in cloth and can be put directly on the skin. WARM PACKS: After approximately two days, apply gentle heat (such as a heating pad or hot water bottle) for about 20 to 30 minutes about every two hours -- at least four times daily. Warmth and elevation will help you make a more rapid recovery, and will ease the pain considerably. Do not use HOT heat, and never apply heat for longer than 30 minutes. The continuous heat can invisibly damage skin and muscles -- even when no burn is seen on the surface. Damaged muscles can make you MORE sore. Stretching Exercises for the Back The physician has recommended that you begin stretching exercises for your back. These are often used even while the back is painful. However, you should notify the physician if the activities seem to increase your pain. PELVIC TILT: Lie flat on your back with knees bent. Tighten your stomach and buttock muscles so it flattens your lower back against the floor. Hold 10 seconds. Repeat 10 times, twice daily. KNEE RAISE: Lying on the back with knees bent, raise one knee to your chest, then the other. Hold both knees against the chest 10 seconds, then lower one knee at a time. Repeat 10 times, twice daily. PARTIAL TRUNK RAISE: Lie face down, arms at your sides. Keeping your waist on the floor, use your arms raise your chest up. Support yourself on your elbows for 30 seconds. Repeat twice daily, increasing the time to two minutes as you recover. STEROID MEDICATION: You have been given a medicine of the cortisone/steroid class. This medication is used to control inflammation or allergy. It is usually only given for a short period of time, until the acute process subsides. There are usually no side effects from short-term use of cortisone-like medications. Some persons feel an increased sense of well-being and are not sleepy at bedtime. Long-term use of cortisone medications is best avoided, unless required for a severe condition. If your condition does not remit, or relapses after the course of corticosteroid medication, you should consult your physician. FOLLOW-UP CARE: If you have been referred to a physician for follow-up care, call the physicians office for an appointment as you were instructed or within the next two days. If you experience worsening or a significant change in your symptoms, notify the physician immediately or return to the Emergency Department at any time for re-evaluation. Forms: Elevated Blood Pressure, Smoking Cessation Education, Return to Work
--- NOTE | 2018-09-16 20:08 | RADIOLOGY REPORT (SQ) ---
5 VIEWS OF THE LUMBAR SPINE HISTORY: Lower back pain. COMPARISON: None. FINDINGS: No acute compression fracture is seen. There is normal alignment without subluxation. The disc spaces are preserved. The SI joints are intact. No evidence of spondylolysis on the oblique views. IMPRESSION: No acute compression fracture of the lumbar spine.
[2018-09-16 20:25] VITALS: BP 135/82
== END 2018-09-16 20:25 | disposition home or self-care (01) ==
LOC: ER 18:27
DX: M54.42 Lumbago with sciatica, left side (principal); M54.9 Dorsalgia, unspecified; M79.10 Myalgia, unspecified site; M79.605 Pain in left leg; M25.552 Pain in left hip; Z79.899 Other long term (current) drug therapy; F17.210 Nicotine dependence, cigarettes, uncomplicated
CPT/HCPCS: 99406; 99283; 96372; 72110; J1885

== ENCOUNTER 2019-07-17 03:41 | Emergency (ER) | payer SELFPAY ==
[2019-07-17] MEDS ORDERED: OXYCODONE-ACETAMINOPHEN 5-325 MG TABLET PO ONE (10:06)
[2019-07-17] MEDS ORDERED: LIDOCAINE 2% VISCOUS SOLN 20 ML UDCUP PO ONE (10:06)
[2019-07-17] MEDS ORDERED: IBUPROFEN 600 MG TABLET PO ONE (10:06)
--- NOTE | 2019-07-17 10:12 | ER Document Report ---
ED General - General Chief Complaint: Jaw Pain Stated Complaint: JAW PAIN Time Seen by Provider: 07/17/19 08:34 Primary Care Provider: [facility] [Outside] - Follow up in 1 week (for dental follow up) TRAVEL OUTSIDE OF THE [place] IN LAST 30 DAYS: No - HPI Notes: 34 year old male to the ED with C/O left lower toothache that has gotten worsen over the past week. He has been trying OTC medicines without any relief of his pain. States that he has made an appointment with dentist this upcoming week but cannot wait. States he broke the bottom back two teeth a long time ago. States that he smokes. Denies drooling, facial swelling, fevers, chills, SOB, difficulty opening mouth. - Related Data Allergies/Adverse Reactions: No Known Allergies Allergy (Verified 09/16/18 18:28) Past Medical History - General Information source: Patient - Social History Smoking Status: Current Every Day Smoker Chew tobacco use (# tins/day): No Frequency of alcohol use: Rare Drug Abuse: None Family History: Arthritis, DM, Hyperlipidemia, Hypertension, Malignancy Patient has suicidal ideation: No Patient has homicidal ideation: No Renal/ Medical History: Denies: Hx Peritoneal Dialysis Musculoskeletal Medical History: Reports Hx Musculoskeletal Deformity, Reports Hx Musculoskeletal Trauma Traumatic Medical History: Reports: Hx Fractures - Left elbow and knee and right fingers Past Surgical History: Reports: Hx Orthopedic Surgery - Left elbow - Immunizations Immunizations up to date: Yes Hx Diphtheria, Pertussis, Tetanus Vaccination: Yes Review of Systems - Review of Systems Constitutional: denies: Chills, Fever EENT: See HPI, Ear pain, Dental problem Cardiovascular: denies: Chest pain, Palpitations, Heart racing, Syncope, Dizziness, Lightheaded Respiratory: denies: Cough, Short of breath Gastrointestinal: denies: Abdominal pain, Diarrhea, Nausea, Vomiting Genitourinary: denies: Frequency, Flank pain, Hematuria Male Genitourinary: No symptoms reported Musculoskeletal: denies: Back pain Skin: No symptoms reported Hematologic/Lymphatic: No symptoms reported Neurological/Psychological: Headaches -: Yes All other systems reviewed and negative Physical Exam - Vital signs Vitals: Temp Pulse Resp BP Pulse Ox 97.2 F 68 20 135/81 H 99 07/17/19 04:12 07/17/19 04:12 07/17/19 04:12 07/17/19 04:12 07/17/19 04:12 Interpretation: Normal - General General appearance: Appears well, Alert - HEENT Head: Normocephalic, Atraumatic Eyes: Normal Pupils: PERRL Ears: Normal External canal: Normal Tympanic membrane: Normal Sinus: Normal Nasal: Normal Mouth/Lips: Normal, Caries - there are multiple teeth with several dental caries. Several teeth are decayed down into the gum line. To Teeth #1 and #2, there is gum edema and erythema but not ryan abscess. No Diaz's angina, no trismus, uvula is midline, no evidence for DIETARY SERVICE AIDE. No voice change. Airway is grossly patent.. No: Angioedema Mucous membranes: Normal Pharynx: Normal. No: Uvular edema, Potential airway comprom. Neck: Normal, Supple. No: Lymphadenopathy, Meningismus - Respiratory Respiratory status: No respiratory distress Chest status: Nontender Breath sounds: Normal Chest palpation: Normal - Cardiovascular Rhythm: Regular Heart sounds: Normal auscultation Murmur: No - Back Back: Normal, Nontender - Neurological Neuro grossly intact: Yes Cognition: Normal Orientation: AAOx4 [place] Coma Scale Eye Opening: Spontaneous Ras Coma Scale Verbal: Oriented [place] Coma Scale Motor: Obeys Commands [place] Coma Scale Total: 15 Speech: Normal Cranial nerves: Normal. No: Facial palsy, Forehead sparing, Gaze palsy, Sensory deficit, Tongue deviation Cerebellar coordination: Normal Motor strength normal: LUE, RUE, LLE, RLE Additional motor exam normals: Equal car stereo installer. No: Pronator drift Sensory: Normal - Psychological Associated symptoms: Normal affect, Normal mood - Skin Skin Temperature: Warm Skin Moisture: Dry Skin Color: Normal Course - Re-evaluation Re-evalutation: 07/17/19 Impression: Dental caries, dental pain. Plan to send home with pain meds, mouthwash, and Abx. Will have patient follow with dentist as scheduled. Instructed to quite smoking and get his teeth cleansed every 6 months. - Vital Signs Vital signs: Temp Pulse Resp BP Pulse Ox 97.8 F 72 18 146/94 H 99 07/17/19 10:33 07/17/19 10:33 07/17/19 10:33 07/17/19 10:33 07/17/19 10:33 Discharge - Discharge Clinical Impression: Dental caries, Pain, dental Condition: Stable Disposition: HOME, SELF-CARE Instructions: [facility], Toothache ([facility]) Additional Instructions: FOLLOW UP WITH YOUR DENTIST WITHOUT FAIL. COMPLETE ANTIBIOTICS. TAKE MEDICINES PRESCRIBED. RETURN IF SHORTNESS OF BREATH, FEVERS, FACIAL SWELLING, AMINTA OLING. Prescriptions: Amoxicillin 1 tab PO TID #30 tab Ibuprofen [Motrin 800 mg Tablet] 800 mg PO Q8H PRN #30 tab PRN Reason: Oxycodone HCl/Acetaminophen [Percocet 5-325 mg Tablet] 1 tab PO Q6H PRN #12 tab PRN Reason: Chlorhexidine Gluconate [Peridex] 15 ml MM TID #420 ml Referrals: [facility] [Outside] - Follow up in 1 week (for dental follow up)
[2019-07-17 10:35] VITALS: BP 146/94
== END 2019-07-17 10:46 | disposition home or self-care (01) ==
LOC: ER 03:41
DX: K02.9 Dental caries, unspecified (principal); K08.89 Other specified disorders of teeth and supporting structures; H92.09 Otalgia, unspecified ear; R51 Headache; F17.200 Nicotine dependence, unspecified, uncomplicated
CPT/HCPCS: 99283; J3490

== ENCOUNTER 2019-12-20 18:27 | Emergency (ER) | payer SELFPAY ==
[2019-12-20 18:35] VITALS: BP 157/85
== END 2019-12-20 21:20 | disposition left against medical advice (07) ==
LOC: ER 18:27
DX: Z53.21 Procedure and treatment not carried out due to patient leaving prior to being seen by health care provider (principal)

== ENCOUNTER 2020-03-26 15:24 | Emergency (ER) | payer SELFPAY ==
[2020-03-26] MEDS ORDERED: KETOROLAC TROMETHAMINE INJ/PF 30 MG/1 ML SDV IM ONE (17:08)
[2020-03-26] MEDS ORDERED: DIPH/PERTUSS(ACELL)/TETANUS VAC/PF 0.5 ML SYR (>=10YO) IM ONE (17:09)
--- NOTE | 2020-03-26 17:51 | RADIOLOGY REPORT (SQ) ---
EXAM DESCRIPTION: FOOT LEFT COMPLETE IMAGES COMPLETED DATE/TIME: 03/26/2020 5:34 pm REASON FOR STUDY: possible FB from bite in ocean COMPARISON: None. NUMBER OF VIEWS: Three views. TECHNIQUE: AP, lateral and oblique without weight bearing radiographic images acquired of the left f oot. LIMITATIONS: None. FINDINGS: MINERALIZATION: Normal. BONES: No acute fracture or dislocation. No worrisome bone lesions. No significant osteophytes. Mode rate Achilles calcaneal enthesophyte is present. JOINTS: No erosions. No alexus-articular osteopenia. No chondrocalcinosis. SOFT TISSUES: No swelling. No calcifications. No radiopaque foreign body. OTHER: No other significant finding. IMPRESSION: No acute osseous abnormality or radiopaque foreign body. TECHNICAL DOCUMENTATION: JOB ID: [id number] [employer]- All Rights Reserved Reading location - IP/workstation name: [email or web address]
[2020-03-26] MEDS ORDERED: MORPHINE SULFATE IR 15 MG TABLET PO ONE (18:35)
--- NOTE | 2020-03-26 19:13 | ER Document Report ---
HPI - HPI Pain Level: 4 Notes: 35-year-old male presenting today with possible bite on his left foot from a marine animal after being in the ocean. He felt the bite/sting approximately 1230 today. He has had [id number] sensation in his fifth fourth and third toe since the injury. He has pain only when walking and applying direct pressure on the anterior portion of his foot. He denies any shortness of breath, chest pain or additional symptoms at this time. He tried immersing his foot in hot water which was recommended by a surfer that was on the beach. Provided no relief in his symptoms. - CONSTITUTIONAL Constitutional: DENIES: Fever, Chills - REPRODUCTIVE Reproductive: DENIES: : - MUSCULOSKELETAL Musculoskeletal: REPORTS: Extremity pain - left foot - DERM Skin Color: Normal Past Medical History - Social History Smoking Status: Current Every Day Smoker Chew tobacco use (# tins/day): No Frequency of alcohol use: Occasional Drug Abuse: None Family History: Arthritis, DM, Hyperlipidemia, Hypertension, Malignancy Patient has homicidal ideation: No Renal/ Medical History: Denies: Hx Peritoneal Dialysis Musculoskeletal Medical History: Reports Hx Musculoskeletal Deformity, Reports Hx Musculoskeletal Trauma Traumatic Medical History: Reports: Hx Fractures - Left elbow and knee and right fingers Past Surgical History: Reports: Hx Orthopedic Surgery - Left elbow - Immunizations Immunizations up to date: Yes Hx Diphtheria, Pertussis, Tetanus Vaccination: Yes Vertical Provider Document - CONSTITUTIONAL General Appearance: WD/WN, No Apparent Distress - INFECTION CONTROL TRAVEL OUTSIDE OF THE [place] IN LAST 30 DAYS: No - HEENT HEENT: Atraumatic, Normocephalic - NECK Neck: Normal Inspection - RESPIRATORY Respiratory: No Respiratory Distress - CARDIOVASCULAR Cardiovascular: Regular Rate - GI/ABDOMEN Gastrointestinal: Abdomen Soft - MUSCULOSKELETAL/EXTREMETIES Notes: Left foot with 1 cm jagged superficial laceration to the dorsal lateral aspect of his left foot. No swelling at this time. Good sensation to light touch. Good dorsalis pedis pulse. 2+ capillary refill. 5 out of 5 strength. - DERM Notes: 1 cm superficial jagged laceration along the left dorsal lateral aspect of the foot. No swelling. Tenderness to palpation. Course - Re-evaluation Re-evalutation: 03/26/20 19:12 X-ray of foot shows no foreign bodies. Does show moderate Achilles calcaneal enthesophyte- patient was informed of this. He does not know when his last tetanus vaccination was. 03/26/20 19:13 Patient was given a shot of Toradol. He states that this did not alleviate his pain. I then prescribed him oral morphine. Pain is now improved. I will go ahead and prophylactically treat him with antibiotics at this time. Pain medications prescribed. Return precautions discussed to include signs of infections or worsening symptoms as discussed. Patient acknowledges and verbalizes understanding of instructions and plan. All questions answered. - Vital Signs Vital signs: Temp Pulse Resp BP Pulse Ox 98.6 F 71 16 142/87 H 100 03/26/20 15:52 03/26/20 15:52 03/26/20 15:52 03/26/20 15:52 03/26/20 15:52 Discharge - Discharge Clinical Impression: Marine animal sting Qualifiers: Encounter type: initial encounter Injury intent: undetermined intent Qualified Code(s): T63.694A - Toxic effect of contact with other venomous marine animals, undetermined, initial encounter Condition: Stable Disposition: HOME, SELF-CARE Instructions: Marine Puncture Envenomation ([facility]), Oral Narcotic Medication ([facility]), Tetanus Immunization Given ([facility]) Additional Instructions: Please keep the area clean and dry. Please clean the area twice daily with soap and water. Please evaluate for signs of infection. Return to the emergency department for worsening symptoms or development of new symptoms. Also recommen d follow-up with your primary care provider. Prescriptions: Morphine Sulfate [Morphine Ir 15 mg Tablet] 15 mg PO Q6HP PRN #12 tablet PRN Reason: Ciprofloxacin HCl [Cipro 500 mg Tablet] 750 mg PO BID #20 tablet
[2020-03-26 19:46] VITALS: BP 131/82
== END 2020-03-26 19:48 | disposition home or self-care (01) ==
LOC: ER 15:24
DX: T63.694A Toxic effect of contact with other venomous marine animals, undetermined, initial encounter (principal); M79.672 Pain in left foot; F17.200 Nicotine dependence, unspecified, uncomplicated
CPT/HCPCS: 99284; 96372; 90471; 73630; 90715; J1885